=== PATIENT | male | born 1975 | race Hispanic/Latino ===

== ENCOUNTER 2020-11-16 16:12 | Emergency (ER) | payer OTHER ==
[~2020-11-16] VITALS: Ht 175.3 cm; Wt 99.8 kg
[~2020-11-16 16:12] MED LIST: ATIVAN1 MG PO
--- OUTSIDE RECORDS SUMMARY | 2020-11-16 16:22 | XMS ---
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 Current PHONE: [phone] Farhana has no Care Guidelines for this patient. E.Anaid. VISIT COUNT (12 MO.) [address] [place] [address] TOTAL 9 NOTE: Visits indicate total known visits. ED/UCC VISIT TRACKING (12 MO.) 11/16/2020 16:13 [facility] TYPE: Emergency COMPLAINT: - ALCOHOL WITHDRAWL 11/16/2020 05:25 [facility] TYPE: Emergency DIAGNOSES: - Anxiety disorder, unspecified - ALCOHOL WITHDRAWAL 10/29/2020 17:21 [facility] TYPE: Emergency DIAGNOSES: - Anxiety disorder, unspecified - Alcohol abuse with intoxication, unspecified - Mild intermittent asthma with (acute) exacerbation - poss alcohol poisoning, nausea, anxiety 07/28/2020 16:57 [facility] [place] TYPE: Emergency DIAGNOSES: - Alcohol dependence with withdrawal, unspecified - INTOXICATED - Alcohol dependence with alcohol-induced anxiety disorder - Alcohol dependence with withdrawal delirium 07/26/2020 09:14 [facility] [place] TYPE: Emergency DIAGNOSES: - Alcohol dependence with unspecified alcohol-induced disorder - Anxiety disorder, unspecified - ETOH DIARRHEA NAUSEA ANXIETY DEPRESSION 06/01/2020 09:00 [facility] [place] TYPE: Emergency DIAGNOSES: - WEAKNESS,NO APPETITE, BLURRY - Alcohol dependence, uncomplicated 05/31/2020 09:47 [facility] [place] TYPE: Emergency DIAGNOSES: - ALCOHOL INTOXICATION NOT FEELING WELL NAUSEA DIARRHEA - Nausea with vomiting, unspecified - Alcohol dependence, uncomplicated 05/30/2020 12:58 [facility] [place] TYPE: Emergency DIAGNOSES: - INTOXICATED NAUSEA NOT FEELING WELL - Alcohol abuse, uncomplicated 04/09/2020 09:35 [facility] [place] TYPE: Emergency DIAGNOSES: - Alcohol dependence, uncomplicated - WITHDRAWALS INPATIENT VISIT TRACKING (12 MO.) No inpatient visits to display in this time frame [email or web address]
[2020-11-16] MEDS ORDERED: CHLORDIAZEPOXID25 MG PO (19:14)
[2020-11-16] MEDS ORDERED: ONDANSETRON ODT8 MG PO (19:14)
== END 2020-11-16 19:32 | disposition home or self-care (01) ==
LOC: ED 16:12
DX: F10.139 Alcohol abuse with withdrawal, unspecified (principal)
CPT/HCPCS: 80053; 83690; 83735; 85025; 96374; 96375; 99284-25; J2060; J2405; J7030